=== PATIENT | female | born 1995 | race Caucasian/White ===

== ENCOUNTER 2023-03-03 20:24 | Emergency (ER) | payer OTHER, SELFPAY ==
[2023-03-03 21:38] LABS: #Basophils 0.1 10x3/uL (0.0-0.2); #Eosinphils 0.1 10x3/uL (0.0-0.5); #Neutrophils 5.7 10x3/uL (1.5-8.4); %Basophils 0.6 % (0.0-2.0); %Eosinophils 0.9 % (0.0-6.0); %Monocytes 9.2 % (0.0-10.0); %Neutrophils 53.1 % (40.0-75.0); Hematocrit 38.9 % (34.9-44.5); Hemoglobin 13.3 g/dL (12.0-15.5); Mean Corpuscular HGB CONC 34.2 g/dL (32.0-36.0); Mean Corpuscular Hemoglobin 28.7 pg (27.0-33.0); Mean Corpuscular Volume 83.8 fl (81.6-98.3); Mean Platelet Volume 9.8 fl (7.4-10.4); Platelet Count 281 10x3/uL (150-450); RBC Distribution Width 12.7 % (11.5-14.5); Red Blood Cell (RBC) Count 4.64 10x6/uL (3.90-5.03); White Blood Cell (WBC) Count 10.7 10x3/uL (3.5-10.5)
[2023-03-03 21:45] LABS: BHCG - Serum POSITIVE (NEGATIVE); Pregs Control Background? CLEAR/WHITE (CLR/WHITE); Pregs Control Bar Appear? YES (CONTROL BAR)
[2023-03-03 21:51] LABS: ALT (SGPT) 14 U/L (8-55); AST (SGOT) 14 U/L (5-34); Albumin 4.3 g/dL (3.5-5.0); Alkaline Phosphatase 46 U/L (40-110); Anion Gap 12 mmol/L (10-20); BUN (Urea Nitrogen) 7 mg/dL (7.0-18.7); Bilirubin, Total 0.3 mg/dL (0.2-1.2); Calc. Creatinine Clearance 0 mL/min (70-130); Calcium 9.3 mg/dL (7.8-10.44); Carbon Dioxide 25 mmol/L (22-29); Chloride 105 mmol/L (98-107); Estimated GFR 113; Globulin 3.1 g/dL (2.4-3.5); Glucose 99 mg/dL (70-105); Potassium 3.5 mmol/L (3.5-5.1); Protein, Total 7.4 g/dL (6.0-8.3); Sodium 138 mmol/L (136-145)
[2023-03-04 00:07] LABS: Bilirubin Neg (Negative); Blood, Urine 250 (Negative); Clarity Bloody (Clear); Glucose, Urine (Dipstick) Normal (Negative); Ketone, Urine 50 mg/dL (Negative); Leukocyte 25 (Negative); Nitrite Negative (Negative); Protein, Urine (Dipstick) 30 mg/dl (Neg-Trace); Specific Gravity, Urine 1.015 (1.005-1.030); Urobilinogen Normal mg/dL (Less than 2)
[2023-03-04 00:08] LABS: Bacteria/HPF None Seen HPF (None Seen); CAUTI Indications for Culture Pregnancy; RBC/HPF Greater than 50 HPF (0-3); Squamous Epithelial None Seen HPF (0-3)
[2023-03-04 00:11] LABS: Urine Culture Reflex Yes Yes
== END 2023-03-04 00:52 | disposition home or self-care (01) ==
LOC: CSHERS 20:24
DX: O03.9 Complete or unspecified spontaneous abortion without complication (principal)
CPT/HCPCS: 76856; 80053; 81001; 84702; 84703; 85025; 86850; 86900; 86901; 87086

== ENCOUNTER 2025-03-24 22:23 | Inpatient (IN) | payer OTHER ==
[2025-03-24 22:44] VITALS: BMI 28.0
[2025-03-25] MEDS ORDERED: hydrALAZINE 20 MG/ML VIAL SLOW IVP PRN ×3 (01:11→04:43)
[2025-03-25] MEDS ORDERED: Tranexamic Acid 1,000 MG/10 ML VIAL IVP PRN (01:11)
[2025-03-25] MEDS ORDERED: Ondansetron PF 4 MG/2 ML Vial IVP PRN ×2 (01:11→04:43)
[2025-03-25] MEDS ORDERED: Carboprost 250 MCG/ML AMP IM PRN (01:11)
[2025-03-25] MEDS ORDERED: Diphenoxylate HCl/Atropine Tablet PO PRN ×2 (01:11)
[2025-03-25] MEDS ORDERED: Ibuprofen 800 MG TAB PO PRN (01:11)
[2025-03-25] MEDS ORDERED: HYDROcodone/Acetaminophen 5/325 mg Tablet PO PRN ×2 (01:11→04:43)
[2025-03-25] MEDS ORDERED: Methylergonovine 0.2 MG/ML VIAL IM PRN ×2 (01:11→04:43)
[2025-03-25] MEDS ORDERED: Acetaminophen 500 MG TAB PO PRN (01:11)
[2025-03-25] MEDS ORDERED: Oxytocin 30 units/NS 500 ML 500 ML IV SCH ×4 (01:15→04:45)
[2025-03-25 01:49] LABS: Hematocrit 36.9 % (34.9-44.5); Hemoglobin 11.4 g/dL (12.0-15.5); Mean Corpuscular Hemoglobin 23.7 pg (27.0-33.0); Mean Corpuscular Volume 76.7 fL (81.6-98.3); Platelet Count 335 10x3/uL (150-450); Red Blood Cell (RBC) Count 4.81 10x6/uL (3.90-5.03); White Blood Cell (WBC) Count 12.10 10x3/uL (3.5-10.5)
[2025-03-25 02:25] LABS: Syphilis Antibody Index 0.04 S/CO (<1.00 Non-Reactive)
[2025-03-25 02:27] LABS: Hep B Surf Ag - L&D Non-Reactive S/CO (NonReactive)
[2025-03-25] MEDS: Lidocaine 1% (PF) 30 ML VIAL SC PRN (04:24)
[2025-03-25] MEDS ORDERED: Benzocaine-Menthol 82.5 ML CAN TOP PRN (04:43)
[2025-03-25] MEDS ORDERED: Preparation H Ointment 28 GM TUBE PR PRN (04:43)
[2025-03-25] MEDS ORDERED: Bisacodyl 10 MG SUPP PR PRN (04:43)
[2025-03-25] MEDS ORDERED: Milk Of Magnesia 30 ML UDCUP PO PRN (04:43)
[2025-03-25] MEDS ORDERED: Lanolin Ointment 7 GM TUBE TOP PRN (04:43)
[2025-03-25] MEDS: Boostrix 0.5 ML (Tdap) VIAL (>/=7 yrs of age) IM ONE (09:33)
[2025-03-25] MEDS: Ibuprofen 800 MG TAB PO SCH (09:33)
[2025-03-25] MEDS: Ferrous Sulfate 325 MG TAB PO SCH (09:33)
[2025-03-26 04:44] LABS: Hematocrit 28.6 % (34.9-44.5); Hemoglobin 9.0 g/dL (12.0-15.5)
[2025-03-26 07:50] VITALS: BP 109/68; TEMP 98
== END 2025-03-26 12:55 | disposition home or self-care (01) | DRG 807 ==
LOC: CSHLD/OP 22:23 → CSHLD 03-25 01:17 → CSHPP 03-25 08:15
PROVIDERS: ADMIT Obstetrics & Gynecology; ATTEND Obstetrics & Gynecology
PROC: 10E0XZZ Delivery of Products of Conception, External Approach (ICD-10-PCS; principal; 2025-03-25)
PROC: 0KQM0ZZ Repair Perineum Muscle, Open Approach (ICD-10-PCS; 2025-03-25)
DX: O70.1 Second degree perineal laceration during delivery (principal); Z37.0 Single live birth; Z3A.39 39 weeks gestation of pregnancy; Z79.899 Other long term (current) drug therapy; Z79.82 Long term (current) use of aspirin
CPT/HCPCS: 36415; 85014; 85018; 85027; 86780; 86850; 86900; 86901; 87340; 99285